=== PATIENT | male | born 1945 | race Caucasian/White ===

== ENCOUNTER 2017-08-10 13:22 | Day surgery (SDC) | payer MEDICARE ==
[2017-08-10 13:23] VITALS: BMI 28.2
[2017-08-10 13:52] VITALS: O2SAT 97
--- NOTE | 2017-08-10 13:53 | ED PDOC ---
Arrival/HPI - General Chief Complaint: Shortness Of Breath Time Seen by Provider: 08/10/17 13:40 Historian: Patient - History of Present Illness Narrative History of Present Illness (Text): 08/10/17 13:50 Derrick Duckworth is a 72 year old male, whose past medical history includes hypertension, COPD, and CAD, who presents to the Emergency department complaining of chest tightness on exertion for the past 2 weeks. Patient evaluated by Dr. Ragsdale, spinner open end, in the office and advised to come to the ER for admission and cardiac catheterization. Patient currently at rest, does not have discomfort. Patient denies any fever, chills, nausea, vomiting, stool changes, headache, dizziness, or any other complaints. Time/Duration: < month (2 weeks) Symptom Onset: Gradual Symptom Course: Unchanged Quality: Tightness Activities at Onset: Light Context: Home Past Medical History - Provider Review Nursing Documentation Reviewed: Yes - Infectious Disease Hx of Infectious Diseases: None - Cardiac Hx Hypertension: Yes Hx Pacemaker: No - Pulmonary Hx Respiratory Disorders: Yes Hx Chronic Obstructive Pulmonary Disease (COPD): Yes Hx Emphysema: Yes - Neurological Hx Paralysis: No - HEENT Hx HEENT Disorder: No - Renal Hx Renal Disorder: No - Endocrine/Metabolic Hx Endocrine Disorders: No - Hematological/Oncological Hx Blood Transfusions: No - Integumentary Hx Dermatological Disorder: No - Musculoskeletal/Rheumatological Hx Musculoskeletal Disorders: No - Gastrointestinal Hx Gastrointestinal Disorders: No - Genitourinary/Gynecological Hx Genitourinary Disorders: No - Psychiatric Hx Emotional Abuse: No Hx Physical Abuse: No Hx Substance Use: No - Anesthesia Hx Anesthesia Reactions: No Hx Malignant Hyperthermia: No - Suicidal Assessment Feels Threatened In Home Enviroment: No Family/Social History - Physician Review Nursing Documentation Reviewed: Yes Family/Social History: Unknown Family HX Smoking Status: Heavy Smoker > 10 Cigarettes Daily Hx Alcohol Use: No Hx Substance Use: No Allergies/Home Meds Allergies/Adverse Reactions: Allergies No Known Allergies Allergy (Verified 08/03/13 08:30) Home Medications: Home Meds Medication Instructions Recorded Confirmed Albuterol 0.042% [Albuterol 0.042% 1 inh PO BID PRN 08/03/13 08/09/14 Inhal Giana (1.25mg/3ml) UD] Atorvastatin Calcium [Lipitor] 10 mg PO HS 08/03/13 08/09/14 Tiotropium Rothschild Inhaler 1 inh PO DAILY 08/03/13 08/09/14 [Spiriva Inhalation Handihaler Device] Fluticasone/Salmeterol [Advair 1 puff IH DAILY 09/06/13 08/09/14 Diskus 100/50] Review of Systems - Review of Systems Constitutional: Fatigue. absent: Fevers Eyes: absent: Vision Changes Respiratory: absent: SOB, Cough, Wheezing Cardiovascular: Chest Pain, THOMAS. absent: Syncope Gastrointestinal: absent: Abdominal Pain, Diarrhea, Nausea, Vomiting Genitourinary Male: absent: Dysuria, Frequency, Hematuria, Urinary Output Changes Musculoskeletal: absent: Back Pain, Neck Pain Skin: absent: Rash Neurological: absent: Headache, Dizziness, Focal Weakness Endocrine: absent: Diaphoresis Psychiatric: absent: Anxiety Physical Exam - Physical Exam Narrative Physical Exam (Text): Head: Atraumatic. Normocephalic. Eyes: PERRL. EOMI. Conjunctivae are not pale. ENT: Mucous membranes are moist and intact. Neck: Supple. Full ROM. No JVD. Cardiovascular: Regular rate. Regular rhythm. No murmurs, rubs, or gallops. Pulmonary/Chest: No evidence of respiratory distress. Clear to auscultation bilaterally. Abdominal: Soft and non-distended. No rebound, guarding, or rigidity. Back: Normal inspection. Extremities: No edema. No cyanosis. No clubbing. Full range of motion in all extremities. No calf tenderness. Skin: Skin is warm and dry. No petechiae. No purpura. Neurological: Alert, awake, and oriented. Motor and sensory exam intact. Psychiatric: Good eye contact. Normal interaction, affect, and behavior. Vital Signs Reviewed: Yes Vital Signs Temp Pulse Resp BP Pulse Ox 08/10/17 13:51 18 97 08/10/17 13:38 19 08/10/17 13:37 98.1 F 80 18 106/70 96 Temperature: Afebrile Blood Pressure: Normal Pulse: Regular Respiratory Rate: Normal Appearance: Positive for: Well-Appearing, Non-Toxic, Comfortable Pain Distress: None Mental Status: Positive for: Alert and Oriented X 3 Medical Decision Making ED Course and Treatment: 08/10/17 13:50 Impression: 72 year old male complaining of chest tightness on exertion for past 2 weeks. Differential Diagnosis included but are not limited to: MN, cad, angina, atypical chest pain Plan: -- EKG -- Chest X-ray -- Labs, cardiac enzymes -- Plavix -- Reassess and disposition Progress Notes: Pt sent to Emergency department by Dr. Ragsdale . Patient's history reviewed with care consultant. He has significant cardiac risk factors and history of chest tightness with exertion over past week. Currently no chest pain at rest. EKG with nonspecific anterior lead st change. 08/10/17 14:00 Chest X-ray shows: LUNGS: No active pulmonary disease. PLEURA: No significant pleural effusion identified, no pneumothorax apparent. CARDIOVASCULAR: Normal. OSSEOUS STRUCTURES: No significant abnormalities. VISUALIZED UPPER ABDOMEN: Normal. OTHER FINDINGS: None. IMPRESSION: No active disease. Upon arrival to ED, Dr. Ragsdale contacted, given risk factors patient will be taken to cardiac cath, patient aware of treatment plan as he had communicated with DR. Ragsdale earlier in the day. He is cv stable in ED. Meds ordered as per Dr. Ragsdale. 08/10/17 22:51 - Lab Interpretations Lab Results: 08/10/17 13:57 08/10/17 13:57 Lab Results 08/10/17 13:57: Sodium 146, Potassium 4.0, Chloride 99, Carbon Dioxide 33, Anion Gap 18, BUN 14, Creatinine 1.1, Est GFR ( Amer) > 60, Est GFR (Non- Af Amer) > 60, Random Glucose 105, Calcium 10.1, Total Bilirubin 0.7, AST 32, ALT 38, Alkaline Phosphatase 77, Lactate Dehydrogenase 410, Total Creatine Kinase 179, Troponin I < 0.01, Total Protein 9.0 H, Albumin 5.1 H, Globulin 3.9 , Albumin/Globulin Ratio 1.3 08/10/17 13:57: PT 11.7, INR 1.02, APTT 32.3 08/10/17 13:57: WBC 8.6, RBC 5.97, Hgb 15.9, Hct 47.7, MCV 79.9 L, MCH 26.6, MCHC 33.3, RDW 15.4 H, Plt Count 288, MPV 9.6, Gran % 63.5, Lymph % (Auto) 27.5 , [place] % (Auto) 6.8 H, Eos % (Auto) 1.6, Baso % (Auto) 0.6, Gran # 5.48, Lymph # (Auto) 2.4, [place] # (Auto) 0.6, Eos # (Auto) 0.1, Baso # (Auto) 0.05 - RAD Interpretation Radiology Orders: 08/10/17 13:43 CHEST PORTABLE [RAD] Stat Medical Insurance Coder: Radiologist - EKG Interpretation Interpreted by ED Physician: Yes Type: 12 lead EKG - Medication Orders Current Medication Orders: Aspirin (Ecotrin) 81 mg PO DAILY MILLICENT Atorvastatin Calcium (Lipitor) 40 mg PO DIN MILLICENT Last Admin: 08/10/17 17:17 Dose: 40 mg Discontinued Medications Clopidogrel Bisulfate (Plavix) 600 mg PO STAT STA Stop: 08/10/17 13:44 Last Admin: 08/10/17 13:51 Dose: 600 mg Sodium Chloride (Sodium Chloride 0.9%) 1,000 mls @ 100 mls/hr IV .Q10H MILLICENT Stop: 08/10/17 20:00 Last Admin: 08/10/17 15:30 Dose: 100 mls/hr eMAR Start Stop Document 08/10/17 15:30 KL (Rec: 08/10/17 17:18 KL [id number]) Intravenous Solution Start Date 08/10/17 Start Time 17:18 - Scribe Statement The provider has reviewed the documentation as recorded by the Scribcaden Meza All medical record entries made by the Scribcaden were at my direction and personally dictated by me. I have reviewed the chart and agree that the record accurately reflects my personal performance of the history, physical exam, medical decision making, and the department course for this patient. I have also personally directed, reviewed, and agree with the discharge instructions and disposition. Disposition/Present on Arrival - Present on Arrival Any Indicators Present on Arrival: No History of DVT/PE: No History of Uncontrolled Diabetes: No Urinary Catheter: No History of Decub. Ulcer: No History Surgical Site Infection Following: None - Disposition Have Diagnosis and Disposition been Completed?: Yes Diagnosis: Chest pain Disposition: HOSPITALIZED Disposition Time: 14:00 Patient Plan: Admission Condition: FAIR
--- NOTE | 2017-08-10 13:56 | RAD ---
HISTORY: sob COMPARISON: 08/05/2017 FINDINGS: LUNGS: No active pulmonary disease. PLEURA: No significant pleural effusion identified, no pneumothorax apparent. CARDIOVASCULAR: Normal. OSSEOUS STRUCTURES: No significant abnormalities. VISUALIZED UPPER ABDOMEN: Normal. OTHER FINDINGS: None. IMPRESSION: No active disease.
[2017-08-10 14:02] LABS: BASO # 0.05 K/mm3 (0.0-2.0); BASO % 0.6 % (0.0-3.0); EOS # 0.1 (0.0-0.7); EOS % 1.6 % (1.5-5.0); GRAN # 5.48 (1.4-6.5); GRAN % 63.5 % (50.0-68.0); HEMOGLOBIN 15.9 g/dL (14.0-18.0); LYMPH # 2.4 (1.2-3.4); LYMPH % 27.5 % (22.0-35.0); MEAN CELL VOLUME 79.9 fl (80.0-105.0); MEAN CORPUSCULAR HEMOGLOBIN 26.6 pg (25.0-35.0); MEAN CORPUSCULAR HGB CONC 33.3 g/dl (31.0-37.0); MEAN PLATELET VOLUME 9.6 fl (7.0-11.0); MONO # 0.6 (0.1-0.6); MONO % 6.8 % (1.0-6.0); RBC 5.97 10^6/uL (3.5-6.1); RED CELL DISTRIBUTION WIDTH 15.4 % (11.5-14.5); WHITE BLOOD COUNT 8.6 10^3/ul (4.5-11.0)
[2017-08-10] MEDS ORDERED: Lidocaine 2% Inj (20ml) ONE (14:03)
[2017-08-10] MEDS ORDERED: Iodixanol 320 MG/ML 200 ML BOTTLE IV ONE (14:04)
[2017-08-10 14:13] LABS: ALB/GLOB RATIO 1.3 (1.1-1.8); ALBUMIN 5.1 g/dL (3.0-4.8); ALT/SGPT 38 U/L (7-56); AST/SGOT 32 U/L (17-59); BLOOD UREA NITROGEN 14 mg/dL (7-21); CALCIUM 10.1 mg/dL (8.4-10.5); GFR NON-AFRICAN AMERICAN > 60
[2017-08-10 14:19] LABS: INR 1.02 (0.93-1.08); PARTIAL THROMBOPLASTIN TIME 32.3 Seconds (25.1-36.5); PROTHROMBIN TIME 11.7 SECONDS (9.4-12.5)
[2017-08-10] MEDS ORDERED: Midazolam 2 MG/2 ML VIAL ONE ×2 (14:20→14:34)
[2017-08-10 14:30] LABS: TROPONIN I < 0.01 ng/mL
[2017-08-10] MEDS ORDERED: Flumazenil 0.1 mg/ml Inj (5ml) IVP ONE (14:40)
[2017-08-10] MEDS ORDERED: Sodium Chloride 0.9% 1,000 ML IV SCH (15:15)
[2017-08-10 18:15] VITALS: TEMP 97.7
--- NOTE | 2017-08-10 21:12 | CARD ---
APPROVED REPORT EKG Measurement Heart [id number] [id number] <Conclusion> Normal sinus rhythm Left axis deviation Nonspecific T wave abnormality Abnormal ECG
[2017-08-10 21:56] VITALS: BP 146/83; PULSE 79; RESP 20
--- NOTE | 2017-08-10 23:41 | CP.PCM.PN ---
Subjective - Date & Time of Evaluation Date of Evaluation: 08/10/17 Time of Evaluation: 09:00 - Subjective Subjective: pt was admitted post cardiac cath for observation ,wants to sign AMA. Objective - Vital Signs/Intake and Output Vital Signs (last 24 hours): Temp Pulse Resp BP Pulse Ox 97.7 F 79 20 146/83 97 08/10/17 18:14 08/10/17 21:15 08/10/17 21:15 08/10/17 21:15 08/10/17 13:51 - Medications Medications: Current Medications Aspirin (Ecotrin) 81 mg PO DAILY MILLICENT Atorvastatin Calcium (Lipitor) 40 mg PO DIN MILLICENT Last Admin: 08/10/17 17:17 Dose: 40 mg - Labs Labs: 08/10/17 13:57 08/10/17 13:57 PT 11.7 SECONDS (9.4-12.5) 08/10/17 13:57 INR 1.02 (0.93-1.08) 08/10/17 13:57 APTT 32.3 Seconds (25.1-36.5) 08/10/17 13:57 - Constitutional Appears: No Acute Distress - Head Exam Head Exam: NORMOCEPHALIC - Eye Exam Eye Exam: Normal appearance Pupil Exam: PERRL - ENT Exam ENT Exam: Mucous Membranes Moist - Neck Exam Neck Exam: Full ROM - Respiratory Exam Respiratory Exam: NORMAL BREATHING PATTERN - Cardiovascular Exam Cardiovascular Exam: RRR, +S1, +S2 - GI/Abdominal Exam GI & Abdominal Exam: Soft - Extremities Exam Extremities Exam: Full ROM - Neurological Exam Neurological Exam: Alert, Awake, CN II-XII Intact, Oriented x3 - Psychiatric Exam Psychiatric exam: Normal Affect - Skin Skin Exam: Normal Color Assessment and Plan - Assessment and Plan (Free Text) Assessment: POST CARDIAC CATH.observation AMA. Plan: RISK OF BLEEDING EXPLAINED TO PT.
--- NOTE | 2017-08-11 08:52 | CARDCATH ---
PROCEDURE DATE: 08/10/2017 HISTORY: The patient is a 72-year-old male with COPD, lung nodules, peripheral vascular disease, and is an active smoker, who presents with chest pain. He was seen in my office. EKG shows ST-T changes across his anterior precordium. Because of his high probability for CAD and symptoms at rest, the patient was sent to the emergency room. In the emergency room, the patient was given aspirin and Plavix, and was sent up to the track repair laborer for emergent cardiac catheterization. PROCEDURES: Left heart catheterization with coronary arteriography and left ventriculogram. The right femoral artery was cannulated with a 6-Swedish sheath. There were no complications. I performed moderate sedation which included the presence of an independent trained observer who assisted in monitoring the patient's level of consciousness and physiologic status. After administration of Versed and fentanyl, my intra-service time was 15 minutes. The findings on catheterization revealed a left ventricle that contracted normally. Estimated ejection fraction of 55%. His coronary anatomy revealed a right dominant circulation. The RCA revealed diffuse atherosclerosis with diffuse disease in the PDA. There is a 50% stenosis in the distal portion of the PDA. The left main artery was unremarkable. The proximal LAD revealed a 20% to 30% stenosis with diffuse intimal irregularities throughout its course. The diagonal vessels revealed intimal irregularities. The circumflex artery and obtuse marginal branches revealed intimal irregularities without critical lesions. Manual compression was used to close the femoral artery site because of plaques in the femoral artery. The patient tolerated the procedure well. In summary, the procedure revealed diffuse atherosclerosis in the coronary tree without critical lesions. There is a distal 50% stenosis in the distal PDA. LV function is preserved with an EF of 55%. Peripheral vascular disease is documented. Given these findings, the patient will need to remain on aspirin indefinitely. We will start the patient on Lipitor. In addition, I have discussed with the patient about his need to stop smoking. Jimmie Ragsdale MD
== END 2017-08-10 21:40 | disposition left against medical advice (07) ==
LOC: ED 13:22 → CATH 14:03 → 2RNO 15:28 → CATH 21:40
PROVIDERS: ATTEND Internal Medicine Cardiovascular Disease
DX: I25.10 Atherosclerotic heart disease of native coronary artery without angina pectoris (principal); I73.9 Peripheral vascular disease, unspecified; J44.9 Chronic obstructive pulmonary disease, unspecified; I10 Essential (primary) hypertension; F17.210 Nicotine dependence, cigarettes, uncomplicated; Z79.82 Long term (current) use of aspirin
CPT/HCPCS: 71045; 80053; 82550; 83615; 84484; 85025; 85610; 85730; 93005; 93458; 96374; 99152; C1769; C2629; J1644; J2250; J3010; J7040; Q9966

== ENCOUNTER 2018-06-12 10:27 | Outpatient (CLI) | payer MEDICARE | END 2018-06-12 10:28 | disposition home or self-care (01) | LOC: RAD 10:27 ==